=== PATIENT | female | born 1960 | race Caucasian/White ===

== ENCOUNTER 2019-05-16 08:52 | Day surgery (SDC) | payer OTHER ==
[~2019-05-16] VITALS: Ht 162.6 cm; Wt 90.7 kg
[2019-05-16] MEDS ORDERED: HYDR-3298 PO (10:11)
[2019-05-16] MEDS ORDERED: SIMV10TA6 PO (10:11)
[2019-05-16] MEDS ORDERED: SERT100T PO (10:11)
[2019-05-16] MEDS ORDERED: SYN.1 PO (10:11)
[2019-05-16] MEDS ORDERED: fentaNYL 0.05 MG/ML VIAL ONE (11:43)
[2019-05-16] MEDS ORDERED: LIDOCAINE 2% 100 MG/5 ML UJET TP ONE (11:43)
[2019-05-16] MEDS ORDERED: MIDAZOLAM 2 MG/2 ML VIAL IVP ONE (11:47)
[2019-05-16] MEDS ORDERED: MIDAZOLAM 2 MG/2 ML VIAL ONE (11:48)
[2019-05-16] MEDS ORDERED: fentaNYL 0.05 MG/ML VIAL IVP ONE (11:50)
== END 2019-05-16 12:40 | disposition home or self-care (01) ==
LOC: MOR 08:52 → MMU 08:53 → MOR 12:40
PROVIDERS: ATTEND Internal Medicine Gastroenterology
DX: R10.32 Left lower quadrant pain (principal); I10 Essential (primary) hypertension; E03.9 Hypothyroidism, unspecified; F32.9 Major depressive disorder, single episode, unspecified; Z98.890 Other specified postprocedural states; E78.00 Pure hypercholesterolemia, unspecified; M79.7 Fibromyalgia; E11.9 Type 2 diabetes mellitus without complications; Z88.0 Allergy status to penicillin; Z79.899 Other long term (current) drug therapy
CPT/HCPCS: 45378; J2250; J3010